=== PATIENT | female | born 1955 | race Caucasian/White ===

== ENCOUNTER 2018-01-28 13:40 | Inpatient (IN) ==
[2018-01-28 16:07] LABS: Apearance,Urine CLOUDY (Clear); Bilirubin,Urine Negative (Negative); Blood, Urine Negative (Negative); Glucose,Urine (UA) Negative (Negative); Ketones,Urine 20 mg/dL (Negative); Mucus,Urine Few /LPF (Occasional); Nitrite,Urine Negative (Negative); Protein,Urine Negative; RBC,Urine <1 /HPF (0-4); Urine Color Amber (Yellow); Urine Specific Gravity 1.025 (1.001-1.035); WBC,Urine 2 /HPF (0-6)
[2018-01-28 16:30] LABS: Basophils % 0.4 % (0.0-0.8); Eosinophils # 0.1 10*3/uL (0.0-0.87); Eosinophils % 0.7 % (0.00-10.9); Hematocrit 48.3 VOL% (35.7-47.0); Hemoglobin 16.4 GM/DL (12.0-16.0); Immature Granulocytes % 0.4 %; Immature Granulocytes Absolute 0.03 #; Lymphocytes # 1.6 10*3/uL (1.4-4.0); Mean Corpuscular Hemoglobin 31 PG (27-34); Mean Corpuscular Volume 91.1 FL (87-102); Mean Platelet Volume 9.9 FL (9.6-12.0); Monocytes # 0.4 10*3/uL (0.11-0.8); Monocytes % 4.4 % (1.7-12.7); Neutrophils % 74.1 % (38.7-73.9); Platelet Count 276 T/CUMM (130-400); Red Cell Distribution Width 12.3 % (9.3-17.3); White Blood Count 8.1 T/CUMM (4-12)
[2018-01-28 16:50] LABS: Albumin 2.8 G/DL (3.4-5.0); Bilirubin,Total 0.6 MG/DL (0.2-1.0); Calcium 9.1 MG/DL (8.5-10.1); Osmolality,Calculated 279.3 MOS/KG (273-304); Potassium 4.1 MMOL/L (3.5-5.1); Total Protein 7.8 G/DL (6.4-8.3)
[2018-01-28] MEDS ORDERED: PROMETHAZINE 25 MG/1 ML VIAL IM PRN (19:27)
[2018-01-28] MEDS ORDERED: HYDROmorphone 2 MG/1 ML VIAL IV PRN (19:27)
[2018-01-28] MEDS ORDERED: ONDANSETRON 4 MG/2 ML VIAL IV PRN (19:27)
[2018-01-28] MEDS ORDERED: ACETAMINOPHEN 325 MG TABLET PO PRN (19:27)
[2018-01-28] MEDS: KETOROLAC 15 MG/1 ML VIAL IV SCH (20:05)
[2018-01-28] MEDS: PIPERACILLIN/TAZOBACTAM 3,375 MG in SODIUM CHLORIDE 0.9% 100 ML IV SCH (20:06)
[2018-01-28] MEDS: LACTATED RINGERS 1,000 ML IV SCH (20:07)
[2018-01-29] MEDS: KETOROLAC 15 MG/1 ML VIAL IV SCH ×4 (01:14→19:49)
[2018-01-29] MEDS: PIPERACILLIN/TAZOBACTAM 3,375 MG in SODIUM CHLORIDE 0.9% 100 ML IV SCH ×3 (03:06→19:47)
[2018-01-29 06:25] LABS: Basophils # 0.1 10*3/uL (0.0-0.2); Basophils % 0.7 % (0.0-0.8); Eosinophils # 0.1 10*3/uL (0.0-0.87); Eosinophils % 1.6 % (0.00-10.9); Hematocrit 36.8 VOL% (35.7-47.0); Immature Granulocytes % 0.5 %; Immature Granulocytes Absolute 0.04 #; Lymphocytes # 2.5 10*3/uL (1.4-4.0); Lymphocytes % 29.9 % (21.3-54.2); Mean Corpuscular HGB Conc 34.5 GM/DL (32-36); Mean Corpuscular Hemoglobin 31 PG (27-34); Mean Corpuscular Volume 90.9 FL (87-102); Mean Platelet Volume 9.2 FL (9.6-12.0); Monocytes # 0.5 10*3/uL (0.11-0.8); Monocytes % 5.4 % (1.7-12.7); Neutrophils # 5.1 10*3/uL (1.4-7.4); Neutrophils % 61.9 % (38.7-73.9); Red Cell Distribution Width 12.3 % (9.3-17.3); White Blood Count 8.3 T/CUMM (4-12)
[2018-01-29 06:36] LABS: Hemoglobin 12.7 GM/DL (12.0-16.0); Platelet Count 376 T/CUMM (130-400); Red Blood Count 4.05 MC/CUMM (3.8-5.5)
[2018-01-29 06:46] LABS: Calcium 8.6 MG/DL (8.5-10.1); Osmolality,Calculated 282.1 MOS/KG (273-304); Potassium 3.2 MMOL/L (3.5-5.1)
[2018-01-29] MEDS: ENOXAPARIN 40 MG/0.4 ML SYRINGE SUBCUT SCH (09:36)
[2018-01-29] MEDS: PANTOPRAZOLE 40 MG VIAL IV SCH (09:37)
[2018-01-29] MEDS: LACTATED RINGERS 1,000 ML IV SCH (17:39)
[2018-01-29] MEDS ORDERED: ALUMINUM/MAGNES/SIMETH MAX STR 30 ML UDCUP PO PRN (21:19)
[2018-01-30] MEDS: KETOROLAC 15 MG/1 ML VIAL IV SCH ×4 (00:52→19:24)
[2018-01-30] MEDS: PIPERACILLIN/TAZOBACTAM 3,375 MG in SODIUM CHLORIDE 0.9% 100 ML IV SCH ×3 (03:24→19:28)
[2018-01-30] MEDS: ENOXAPARIN 40 MG/0.4 ML SYRINGE SUBCUT SCH (09:23)
[2018-01-30] MEDS: PANTOPRAZOLE 40 MG VIAL IV SCH (09:23)
[2018-01-31] MEDS ORDERED: LACTATED RINGERS 1,000 ML IV SCH (00:01)
[2018-01-31] MEDS: KETOROLAC 15 MG/1 ML VIAL IV SCH ×2 (01:01→08:34)
[2018-01-31] MEDS: PIPERACILLIN/TAZOBACTAM 3,375 MG in SODIUM CHLORIDE 0.9% 100 ML IV SCH (03:07)
[2018-01-31 08:09] VITALS: BP 136/80
[2018-01-31] MEDS: PANTOPRAZOLE 40 MG VIAL IV SCH (08:31)
[2018-01-31] MEDS: ENOXAPARIN 40 MG/0.4 ML SYRINGE SUBCUT SCH (08:34)
[2018-01-31 08:49] LABS: Basophils % 0.5 % (0.0-0.8); Eosinophils # 0.1 10*3/uL (0.0-0.87); Eosinophils % 1.3 % (0.00-10.9); Hematocrit 38.3 VOL% (35.7-47.0); Hemoglobin 12.6 GM/DL (12.0-16.0); Immature Granulocytes % 0.2 %; Immature Granulocytes Absolute 0.02 #; Lymphocytes # 2.1 10*3/uL (1.4-4.0); Lymphocytes % 25.2 % (21.3-54.2); Mean Corpuscular HGB Conc 32.9 GM/DL (32-36); Mean Corpuscular Hemoglobin 30 PG (27-34); Mean Corpuscular Volume 92.5 FL (87-102); Mean Platelet Volume 10.2 FL (9.6-12.0); Monocytes # 0.4 10*3/uL (0.11-0.8); Monocytes % 4.2 % (1.7-12.7); Neutrophils # 5.8 10*3/uL (1.4-7.4); Neutrophils % 68.6 % (38.7-73.9); Platelet Count 346 T/CUMM (130-400); Red Blood Count 4.14 MC/CUMM (3.8-5.5); Red Cell Distribution Width 12.2 % (9.3-17.3); White Blood Count 8.5 T/CUMM (4-12)
[2018-01-31 09:02] LABS: Calcium 8.9 MG/DL (8.5-10.1); Osmolality,Calculated 276.5 MOS/KG (273-304); Potassium 3.8 MMOL/L (3.5-5.1)
[2018-01-31 09:07] LABS: Platelet Estimate Normal
[2018-01-31] MEDS ORDERED: metroNIDAZOLE 500 MG TABLET PO SCH (15:00)
[2018-01-31] MEDS ORDERED: CIPROFLOXACIN 500 MG TABLET PO SCH (21:00)
== END 2018-01-31 11:57 | disposition home or self-care (01) | DRG 392 ==
LOC: N.ED 13:40 → N.EDINP 18:04 → N.3E 19:07
PROVIDERS: ADMIT Surgery; ATTEND Surgery